=== PATIENT | male | born 1965 | race African-American/Black ===

== ENCOUNTER 2017-11-20 20:49 | Inpatient (IN) | payer OTHER ==
[2017-11-20] MEDS: MORPHINE 4 MG/ML 1ML SYRINGE IV (22:13)
[2017-11-20 22:41] LABS: BASO % 0.4 % (0.0-1.0); EOS # 0.4 10^3/uL (0.0-0.50); EOS % 4.1 % (0.0-3.0); HEMATOCRIT 45.5 % (42.0-52.0); HEMOGLOBIN 15.2 g/dl (14.0-18.0); IMMATURE GRANULOCYTE % 0.3 % (0-0); LYMPH # 2.4 10^3/uL (1.5-4.5); LYMPH % 23.7 % (24.0-44.0); MEAN CORPUSCULAR HEMOGLOBIN 28.7 pg (27.0-33.0); MEAN CORPUSCULAR HGB CONC 33.4 g/dl (32.0-36.5); MEAN CORPUSCULAR VOLUME 85.8 fl (80.0-96.0); MONO # 0.7 10^3/uL (0.0-0.8); MONO % 7.4 % (0.0-5.0); NEUTROPHILS # 6.4 10^3/uL (1.8-7.7); NEUTROPHILS % 64.1 % (36.0-66.0); PLATELET COUNT, AUTOMATED 164 10^3/uL (150-450); RED CELL DISTRIBUTION WIDTH 15.2 % (11.5-14.5)
[2017-11-20] MEDS: NS 1,000 ML IV (22:45)
[2017-11-20 22:55] LABS: INR 0.95; PROTHROMBIN TIME 12.8 SECONDS (12.4-14.5)
[2017-11-20 22:56] LABS: PARTIAL THROMBOPLASTIN TIME 25.5 SECONDS (26.8-37.9)
[2017-11-20 22:59] LABS: ANION GAP 9 MEQ/L (8-16); BLOOD UREA NITROGEN 22 MG/DL (7-18); CARBON DIOXIDE LEVEL 28 MEQ/L (21-32); CHLORIDE LEVEL 101 MEQ/L (98-107); CREATININE FOR GFR 1.17 MG/DL (0.70-1.30); GLOMERULAR FILTRATION RATE > 60.0 (>56); GLUCOSE, FASTING 118 MG/DL (70-105); POTASSIUM SERUM 3.7 MEQ/L (3.5-5.1); SODIUM LEVEL 138 MEQ/L (136-145)
[2017-11-21] MEDS: NS 1,000 ML IV (00:01)
[2017-11-21] MEDS ORDERED: ONDANSETRON 4MG/2ML VIAL (J2405) IV ×2 (00:15→13:00)
[2017-11-21] MEDS ORDERED: PERCOCET 5MG/325MG TAB PO ×2 (00:15→13:00)
[2017-11-21] MEDS: MORPHINE 2 MG/ML 1ML SYRINGE IV ×2 (02:17→07:11)
[2017-11-21] MEDS: PERCOCET 5MG/325MG TAB PO (02:18)
[2017-11-21] MEDS: DOCUSATE SODIUM 100 MG CAP PO ×2 (09:00→21:02)
[2017-11-21] MEDS ORDERED: ENOXAPARIN 30 MG/0.3 ML SYR (J1650) SC (09:00)
[2017-11-21] MEDS ORDERED: PROPOFOL 200 MG/20 ML VIAL As Ordered (09:57)
[2017-11-21] MEDS ORDERED: LIDOCAINE 2% INJ 100 MG/5 ML SDV (FOR ANES.) As Ordered (09:57)
[2017-11-21] MEDS ORDERED: fentaNYL 100 MCG/2 ML INJECTION (J3010) As Ordered (09:58)
[2017-11-21] MEDS ORDERED: MIDAZOLAM INJ 2 MG/2 ML VIAL (J2250) As Ordered (09:58)
[2017-11-21] MEDS: ceFAZolin 2 GM/D5W 50 ML IV BAG (J0690 PER 500MG) As Ordered (11:00)
[2017-11-21] MEDS: LR 1,000 ML IV ×2 (13:00)
[2017-11-21] MEDS ORDERED: KETOROLAC 30 MG/ML VIAL (J1885) IV (13:00)
[2017-11-21] MEDS ORDERED: fentaNYL 100 MCG/2 ML INJECTION (J3010) IV (13:00)
[2017-11-21] MEDS ORDERED: MEPERIDINE INJ 25 MG/ML VIAL (J2175) IV (13:00)
[2017-11-21] MEDS ORDERED: NORCO, ANEXSIA 5/325MG TABLET (HYDROcodone/ACETAMINOPHEN) PO (13:15)
[2017-11-21] MEDS: NORCO, ANEXSIA 5/325MG TABLET (HYDROcodone/ACETAMINOPHEN) PO ×2 (16:56→21:02)
[2017-11-21] MEDS: MORPHINE 4 MG/ML 1ML SYRINGE IV ×5 (16:57→23:20)
[2017-11-21] MEDS: ASPIRIN 325 MG TAB PO (21:02)
[2017-11-21] MEDS: hydroCHLOROthiazide 12.5 MG CAPSULE PO (23:52)
[2017-11-21] MEDS: amLODIPine 10 MG TAB PO (23:54)
[2017-11-22] MEDS: NORCO, ANEXSIA 5/325MG TABLET (HYDROcodone/ACETAMINOPHEN) PO ×2 (00:52→08:53)
[2017-11-22] MEDS: MORPHINE 4 MG/ML 1ML SYRINGE IV ×3 (01:41→06:58)
[2017-11-22] MEDS: DOCUSATE SODIUM 100 MG CAP PO (08:52)
[2017-11-22] MEDS: ASPIRIN 325 MG TAB PO (08:52)
[2017-11-22] MEDS: hydroCHLOROthiazide 12.5 MG CAPSULE PO (08:53)
[2017-11-22] MEDS: amLODIPine 10 MG TAB PO (08:53)
== END 2017-11-22 10:45 | disposition home or self-care (01) | DRG 313 ==
LOC: M ED INP 11-21 00:03 → M PED 11-21 01:10 → M ED 20:49
PROC: 0QSH06Z Reposition Left Tibia with Intramedullary Internal Fixation Device, Open Approach (ICD-10-PCS; principal; 2017-11-21 10:00)
PROC: 0QSK06Z Reposition Left Fibula with Intramedullary Internal Fixation Device, Open Approach (ICD-10-PCS; 2017-11-21 10:00)
DX: S82.232A Displaced oblique fracture of shaft of left tibia, initial encounter for closed fracture (principal); I10 Essential (primary) hypertension; S82.65XA Nondisplaced fracture of lateral malleolus of left fibula, initial encounter for closed fracture; F17.210 Nicotine dependence, cigarettes, uncomplicated; W01.0XXA Fall on same level from slipping, tripping and stumbling without subsequent striking against object, initial encounter; Y92.89 Other specified places as the place of occurrence of the external cause; Y99.8 Other external cause status; Z79.899 Other long term (current) drug therapy